=== PATIENT | female | born 1940 | race Caucasian/White ===

== ENCOUNTER → 2023-07-01 08:51 | Outpatient (REF) | payer MEDICARE, SELFPAY ==
[2023-07-01 10:55] LABS: ALT (SGPT) 20 U/L (0-35); AST (SGOT) 25 U/L (14-36); Alkaline Phosphatase 53 U/L (38-126); Blood Urea Nitrogen 15 mg/dl (7-17); Calcium 9.9 mg/dl (8.4-10.2); Carbon Dioxide 29 mmol/L (22-30); Chloride 101 mmol/L (98-107); Glucose 92 mg/dl (70-99); HDL Cholesterol 48 mg/dl; LDL Cholesterol, Calculated 55 mg/dl; Potassium 4.4 mmol/L (3.5-5.1); Sodium 141 mmol/L (135-145); Total Bilirubin 0.5 mg/dl (0.2-1.3); Total Cholesterol 142 mg/dl (50-199); Total Protein 6.8 g/dl (6.3-8.2); Triglyceride 197 mg/dl (10-149); Very Low Density Lipoprotein 39 mg/dl (0-30); eGFR > 60.00
[2023-07-04 09:14] LABS: Intact PTH 41.1 pg/ml (13.6-85.8)
== END ==
LOC: REG 08:51
PROVIDERS: ATTENDING PHYSICIAN Nurse Practitioner Adult Health
DX: E83.52 Hypercalcemia (principal); E78.2 Mixed hyperlipidemia
CPT/HCPCS: 36415; 80053; 80061; 83970

== ENCOUNTER 2023-09-22 10:54 | Outpatient (RCR) | payer MEDICARE, SELFPAY | END 2023-09-22 23:59 | disposition home or self-care (01) | LOC: RPT 10:54 | PROVIDERS: ATTENDING PHYSICIAN Nurse Practitioner Adult Health; FAMILY PHYSICIAN Internal Medicine | DX: M54.2 Cervicalgia (principal); Z73.6 Limitation of activities due to disability | CPT/HCPCS: 97010; 97110; 97140; 97162 ==

== ENCOUNTER 2023-10-06 10:55 | Outpatient (RCR) | payer MEDICARE, SELFPAY | END 2023-10-06 13:55 | disposition home or self-care (01) | LOC: RPT 10:55 | PROVIDERS: ATTENDING PHYSICIAN Nurse Practitioner Adult Health; FAMILY PHYSICIAN Internal Medicine | DX: M54.2 Cervicalgia (principal); Z73.6 Limitation of activities due to disability | CPT/HCPCS: 97010; 97110; 97140 ==

== ENCOUNTER → 2023-11-23 15:28 | Outpatient (REF) | payer MEDICARE, SELFPAY ==
[2023-11-23 15:55] LABS: Erythrocyte Sed Rate 12 mm/hour (0-20)
[2023-11-23 16:11] LABS: ALT (SGPT) 23 U/L (0-35); AST (SGOT) 29 U/L (14-36); Albumin 4.8 g/dl (3.5-5.0); Alkaline Phosphatase 62 U/L (38-126); Blood Urea Nitrogen 15 mg/dl (7-17); Calcium 10.6 mg/dl (8.4-10.2); Carbon Dioxide 27 mmol/L (22-30); Chloride 103 mmol/L (98-107); Glucose 93 mg/dl (70-99); HDL Cholesterol 46 mg/dl; LDL Cholesterol, Calculated 50 mg/dl; Sodium 139 mmol/L (135-145); Total Bilirubin 0.4 mg/dl (0.2-1.3); Total Cholesterol 144 mg/dl (50-199); Total Protein 7.6 g/dl (6.3-8.2); Triglyceride 243 mg/dl (10-149); Very Low Density Lipoprotein 48 mg/dl (0-30); eGFR > 60.00
== END ==
LOC: REG 15:28
PROVIDERS: ATTENDING PHYSICIAN Nurse Practitioner Adult Health
DX: M31.6 Other giant cell arteritis (principal); I10 Essential (primary) hypertension; E78.2 Mixed hyperlipidemia
CPT/HCPCS: 36415; 80053; 80061; 85652

== ENCOUNTER → 2024-06-09 08:35 | Outpatient (REF) | payer MEDICARE, SELFPAY ==
[2024-06-09 11:33] LABS: ALT (SGPT) 24 U/L (0-35); AST (SGOT) 28 U/L (14-36); Albumin 4.7 g/dl (3.5-5.0); Alkaline Phosphatase 55 U/L (38-126); Blood Urea Nitrogen 20 mg/dl (7-17); Calcium 10.1 mg/dl (8.4-10.2); Carbon Dioxide 28 mmol/L (22-30); Chloride 103 mmol/L (98-107); Glucose 96 mg/dl (70-99); HDL Cholesterol 45 mg/dl; LDL Cholesterol, Calculated 60 mg/dl; Potassium 4.6 mmol/L (3.5-5.1); Sodium 141 mmol/L (135-145); Total Bilirubin 0.5 mg/dl (0.2-1.3); Total Cholesterol 141 mg/dl (50-199); Total Protein 7.5 g/dl (6.3-8.2); Triglyceride 180 mg/dl (10-149); Very Low Density Lipoprotein 36 mg/dl (0-30); eGFR > 60.00
== END ==
LOC: REG 08:35
PROVIDERS: ATTENDING PHYSICIAN Nurse Practitioner Adult Health
DX: I10 Essential (primary) hypertension (principal); E78.2 Mixed hyperlipidemia
CPT/HCPCS: 36415; 80053; 80061

== ENCOUNTER → 2024-06-16 13:28 | Outpatient (REF) | payer MEDICARE, SELFPAY | LOC: RAD 13:28 | PROVIDERS: ATTENDING PHYSICIAN Nurse Practitioner Adult Health; FAMILY PHYSICIAN Internal Medicine | DX: M16.11 Unilateral primary osteoarthritis, right hip (principal) | CPT/HCPCS: 73502 ==

== ENCOUNTER → 2024-08-23 08:11 | Outpatient (REF) | payer MEDICARE, SELFPAY | LOC: HWRCS 08:11 | PROVIDERS: ATTENDING PHYSICIAN Internal Medicine Cardiovascular Disease; FAMILY PHYSICIAN Nurse Practitioner Adult Health | DX: Z01.810 Encounter for preprocedural cardiovascular examination (principal); I10 Essential (primary) hypertension | CPT/HCPCS: 78452; 93017; A9500; J2785 ==

== ENCOUNTER 2024-10-12 06:31 | Inpatient (IN) | payer MEDICARE, SELFPAY ==
[2024-08-09 11:20] LABS: Hematocrit 36.3 % (37.0-47.0); Hemoglobin 12.2 g/dL (12.0-16.0); Mean Corp Hgb Conc. 33.6 g/dL (33.0-37.0); Mean Corpuscular Hgb 30.2 pg (27.0-31.0); Mean Corpuscular Volume 89.9 fL (81.0-99.0); Mean Platelet Volume 9.7 fL (7.4-10.4); Platelet Count 253 10^3/uL (130-400); Red Blood Cell Count 4.04 10^6/uL (4.20-5.40); Red Cell Dist. Width 13.2 % (11.5-14.5); White Blood Cell Count 6.3 10^3/uL (4.8-10.8)
[2024-08-09 12:16] LABS: Glycohemoglobin (HgbA1c) 5.5 % (4.0-5.6)
[2024-08-09 12:22] LABS: ALT (SGPT) 24 U/L (0-35); AST (SGOT) 29 U/L (14-36); Albumin 4.9 g/dl (3.5-5.0); Alkaline Phosphatase 65 U/L (38-126); Blood Urea Nitrogen 14 mg/dl (7-17); Calcium 10.3 mg/dl (8.4-10.2); Carbon Dioxide 24 mmol/L (22-30); Chloride 101 mmol/L (98-107); Glucose 109 mg/dl (70-99); Potassium 4.4 mmol/L (3.5-5.1); Sodium 138 mmol/L (135-145); Total Bilirubin 0.5 mg/dl (0.2-1.3); Total Protein 7.5 g/dl (6.3-8.2); eGFR > 60.00
[2024-08-09 14:15] VITALS: BMI 24.9
[2024-08-09 16:17] VITALS: BMI 24.9
--- NOTE | 2024-09-22 15:02 | CM ---
CM spoke with patient's daughter. CM confirmed that patient lives independently with her son. Daughter is available for assistance and discharge planning. Patient does not have a history of VN< SNF. CM confirmed that patient has a list of her DME
and has purchased all of it despite the hip kit. CM advised daughter hip kit would be available on [employer].
Patient is active with her PCP> Patient uses [facility] for medication services.
Patients daughter stated that they are considering moving the bed down stairs. CM advised that patient will be evaluated on stairs prior to being discharged from the hospital.
CM discussed outpatient PT. Daughter will made outpatient PT appoint at [facility].
CM encouraged hydration and bowel regimen pre-operatively.
PLAN: home with family, outpatient PT.
[2024-09-27 12:49] LABS: Hematocrit 37.3 % (37.0-47.0); Hemoglobin 12.6 g/dL (12.0-16.0); Mean Corp Hgb Conc. 33.8 g/dL (33.0-37.0); Mean Corpuscular Hgb 30.3 pg (27.0-31.0); Mean Corpuscular Volume 89.7 fL (81.0-99.0); Mean Platelet Volume 10.1 fL (7.4-10.4); Platelet Count 257 10^3/uL (130-400); Red Blood Cell Count 4.16 10^6/uL (4.20-5.40); Red Cell Dist. Width 13.2 % (11.5-14.5); White Blood Cell Count 5.2 10^3/uL (4.8-10.8)
[2024-09-27 13:06] VITALS: BMI 26.0
[2024-09-27 13:17] LABS: ALT (SGPT) 24 U/L (0-35); AST (SGOT) 28 U/L (14-36); Albumin 4.7 g/dl (3.5-5.0); Alkaline Phosphatase 56 U/L (38-126); Blood Urea Nitrogen 16 mg/dl (7-17); Calcium 9.8 mg/dl (8.4-10.2); Carbon Dioxide 27 mmol/L (22-30); Chloride 104 mmol/L (98-107); Estimated Creatinine Clearance 51 ml/min; Glucose 89 mg/dl (70-99); Potassium 4.6 mmol/L (3.5-5.1); Sodium 142 mmol/L (135-145); Total Bilirubin 0.5 mg/dl (0.2-1.3); Total Protein 7.4 g/dl (6.3-8.2); eGFR > 60.00
--- NOTE | 2024-09-27 13:39 | HPS.HSE ---
Family Physician
-
Family Physician: Carlos Bravo
Chief Complaint
-
Advanced primary osteoarthritis of the right hip.
History of Present Illness
84yo female presenting today for advanced primary osteoarthritis of the right
hip. The patient reports significant right hip pain and instability
secondary to this diagnosis. She notes that her current right hip pain
is greatly interfering with her activities of daily living and is overall
impacting her quality of life. She has tried and failed multiple
conservative treatment measures in the past for her right hip pain.
These conservative treatment measures include activity modification,
self-directed therapeutic exercises, physical therapy, injection therapy,
medical management with Tylenol and NSAIDs, and the application of
ice and/or heat. Recent x-ray findings of the right hip demonstrated
100% [id number] osteoarthritis. She was determined to be in
need of a right total hip arthroplasty. She denies any current
complaints today such as chest pain, shortness of breath, palpitations,
nausea, vomiting, diarrhea, lightheadedness, dizziness, cough, sore
throat, or fever.
Medical History
Past Medical History
Past Medical History: Reports Other (see below)
Additional Past Medical History:
1. Osteoarthritis.
2. Hypertension.
3. Hyperlipidemia.
4. Abnormal EKG; nuclear stress test 08/23/2024 stable.
5. GERD.
6. Hiatal hernia.
7. Chronic constipation.
8. Mild cognitive deficits regarding short term memory.
9. Remote migraines.
10. Peripheral neuropathy.
11. Balance difficulties.
12. Multilevel degenerative disc disease.
13. Overactive bladder with urinary incontinence.
14. Allergic rhinitis.
15. Anxiety.
16. Osteopenia.
17. Insomnia.
18. Hearing impairment bilaterally.
Past Surgical History: Reports Other (cataract)
Social History
Tobacco: Non-smoker
Alcohol: Occasional
Family History
Family History: Not pertinent
Allergies / Home Medications
Allergies reflects when Allergies were last updated in [employer].
Home Medications with original date entered in [employer]
Allergy/Medication List:
MEDICATIONS:
1. Acetaminophen 1000 mg p.o. every six hours as needed.
2. Amlodipine 10 mg p.o. daily.
3. Calcium and vitamin D one tablet p.o. daily.
4. Co Q10 50 mg p.o. every evening.
5. Tylenol PM two tablets p.o. at bedtime as needed.
6. Lisinopril 40 mg p.o. daily.
7. Meloxicam 7.5 mg p.o. daily.
8. Multivitamin one tablet p.o. daily.
9. Probiotic one capsule p.o. twice a day.
10. Senna Plus 1-2 tab-capsules p.o. at bedtime as needed.
11. Sertraline 25 mg p.o. daily.
12. Simvastatin 20 mg p.o. every evening.
ALLERGIES: Codeine. Penicillin. Cephalosporin.
Review of Systems
-
A 12 point ROS was completed and negative except as noted: Yes
Physical Exam
Physical Exam
General: Well Developed and Well Nourished
HEENT: NormoCephalic and Anicteric
Respiratory: Clear and Non Labored Respirations
Cardiac: S1/S2 and Regular Rhythm
GI: Soft, Non Tender, Normal Bowel Sounds and No Hepatosplenomegaly
Musculoskeletal: Other (R hip: 10 degree internal, 5 degree external rotation with pain upon active and passive ROM)
Neuro: AO x 3 and Cranial Nerves Intact
Laboratory Results
-
09/27/24 11:01
09/27/24 11:01
Laboratory Results
Total Bilirubin 0.5 mg/dl (0.2-1.3) 09/27/24 11:01
AST 28 U/L (14-36) 09/27/24 11:01
ALT 24 U/L (0-35) 09/27/24 11:01
Alkaline Phosphatase 56 U/L (38-126) 09/27/24 11:01
Impression/Plan
-
CLEARANCES:
1. Primary medical, VERO Lyons, cleared.
Primary medical phone number: [phone].
2. Cardiology, Dr. Valdemar Dejesus, cleared pending stress test.
Stress test without significant ischemia.
3. Dental, Dr. Rashard Alvarenga, cleared.
IMPRESSION/PLAN:
1. Advanced primary osteoarthritis of the right hip in need of a
right total hip arthroplasty by Dr. Mumtaz Mina on
08/24/2024. The benefits and risks of the procedure have
been explained to the patient. The patient understands these
risks and wishes to proceed.
2. Deep vein thrombosis prophylaxis: Aspirin with bilateral venous
compression devices.
3. Chronic constipation: We will add nightly Milk of Magnesia to
our standard bowel regimen of Colace and Senokot post-
surgery.
4. Balance difficulties: The patient will be placed on fall
precautions post-operatively.
5. Mild cognitive deficits regarding short term memory: We will
use Tramadol as needed for moderate to severe post-
operative pain.
[2024-09-27 13:41] LABS: Glycohemoglobin (HgbA1c) 5.7 % (4.0-5.6)
[2024-09-27 16:36] VITALS: BMI 26.0
[2024-10-12] VITALS (16 sets, daily range): BP systolic 107–153; BP diastolic 44–75; PULSE 88; O2SAT 96; BMI 26.0
[2024-10-12] MEDS: TYLENOL 650 MG PO ×4 (07:17→20:02)
[2024-10-12] MEDS: CELEBREX 200 MG PO (07:17)
--- NOTE | 2024-10-12 07:20 | W.PN.ORTHO ---
Today's Communication / Plan
-
d/c when stable
Assessment
.
Dressing:
Clean, dry and intact.
Assessment:
Chronic constipation: We will add nightly Milk of Magnesia to
our standard bowel regimen of Colace and Senokot post-
surgery.
Balance difficulties: The patient will be placed on fall
precautions post-operatively.
Mild cognitive deficits regarding short term memory: We will
use Tramadol as needed for moderate to severe post-
operative pain.
Plan
.
Surgery / Date: R ANDREW 10/12/24
DVT Prophylaxis: Aspirin
Activity:
Out of bed.
PT/OT
Vital Signs and Labs
.
Vital Signs and Labs:
Lab Results
09/27/24 11:01
09/27/24 11:01
[2024-10-12] MEDS: NORMOSOL-R/PLASMALYTE-A 1000 IV ×3 (07:29→12:04)
--- NOTE | 2024-10-12 07:40 | W.DS.TRANS ---
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
-
Discharge Instructions:
Sleep Apnea Risk Low
Discharge Diagnosis/Procedures R ANDREW 10/12/24
Diet As tolerated
Activity With Walker
Additional Activity Adequate hydration, minimize Oxy and wear TEDs
stockings to prevent low blood pressure/
dizziness
Driving Restrictions No driving
Bathing Restrictions OK to Shower
Other Services PT
Instructions:
Stand-Alone Forms: Total Hip/Knee Replacement D/C
Changes to Home Medications: Yes
Discharge Medications:
DC Medications w/original date entered in [facility]
Probiotic 1 cap PO BID 08/03/24
calcium 600 mg (as carbonate)-vitamin D3 5 mcg (200 unit) tablet 1 tab PO DAILY 08/03/24
coQ10 (ubiquinol) 50 mg PO QPM 08/03/24
diphenhydramine 25 mg-acetaminophen 500 mg tablet (Tylenol PM Extra Strength) 2 tab PO HS PRN pain insomnia 08/03/24
hlwxkrav-ket-wsojd ac 400 mcg-calcium carb 500 mg-vit K1 20 mcg tablet (Women's 50 Plus Multivitamin) 1 tab PO DAILY 08/03/24
simvastatin 20 mg tablet 20 mg PO QPM 08/03/24
loratadine 10 mg tablet 10 mg PO DAILY PRN seasonal allergies 09/26/24
sertraline 50 mg tablet 50 mg PO DAILY 09/26/24
dexamethasone 4 mg tablet 4 mg PO BID inflammation #6 tabs 09/27/24
famotidine 20 mg tablet 20 mg PO HS GI prophylaxis #30 tabs 09/27/24
gabapentin 300 mg capsule 300 mg PO HS sleep/pain #10 caps 09/27/24
meloxicam 15 mg tablet 15 mg PO DAILY anti-inflammatory #14 tabs 09/27/24
mupirocin 2 % topical ointment 1 applic topical BID infection prevention #1 tube 09/27/24
ondansetron 4 mg disintegrating tablet 4 mg PO Q6H PRN n/v #20 tabs 09/27/24
tramadol 50 mg tablet 50 mg PO Q6H PRN 1 tab moderate pain, 2 if severe #30 tabs 09/27/24
acetaminophen 500 mg tablet 1,000 mg (2 x 500 mg) PO TID #0 tabs 10/12/24
amlodipine 10 mg tablet 10 mg PO DAILY #0 tabs 10/12/24
aspirin 325 mg tablet 325 mg PO DAILY blood clot prevention #1 tab 10/12/24
docusate sodium 100 mg capsule (Colace) 100 mg PO BID stool softner #1 cap 10/12/24
lisinopril 40 mg tablet 40 mg PO DAILY #0 tabs 10/12/24
magnesium hydroxide 400 mg/5 mL oral suspension (Milk of Magnesia) 30 ml PO HS constipation #1 mL 10/12/24
sennosides 8.6 mg-docusate sodium 50 mg capsule (Senna Plus) 2 tab-cap (2 x 8.6-50 mg) PO BID #2 caps 10/12/24
Home Medication Changes
dexamethasone 4 mg tablet 4 mg PO BID inflammation #6 tabs 09/27/24
famotidine 20 mg tablet 20 mg PO HS GI prophylaxis #30 tabs 09/27/24
gabapentin 300 mg capsule 300 mg PO HS sleep/pain #10 caps 09/27/24
meloxicam 15 mg tablet 15 mg PO DAILY anti-inflammatory #14 tabs 09/27/24
mupirocin 2 % topical ointment 1 applic topical BID infection prevention #1 tube 09/27/24
ondansetron 4 mg disintegrating tablet 4 mg PO Q6H PRN n/v #20 tabs 09/27/24
tramadol 50 mg tablet 50 mg PO Q6H PRN 1 tab moderate pain, 2 if severe #30 tabs 09/27/24
acetaminophen 500 mg tablet 1,000 mg (2 x 500 mg) PO TID #0 tabs 10/12/24
amlodipine 10 mg tablet 10 mg PO DAILY #0 tabs 10/12/24
aspirin 325 mg tablet 325 mg PO DAILY blood clot prevention #1 tab 10/12/24
docusate sodium 100 mg capsule (Colace) 100 mg PO BID stool softner #1 cap 10/12/24
lisinopril 40 mg tablet 40 mg PO DAILY #0 tabs 10/12/24
magnesium hydroxide 400 mg/5 mL oral suspension (Milk of Magnesia) 30 ml PO HS constipation #1 mL 10/12/24
sennosides 8.6 mg-docusate sodium 50 mg capsule (Senna Plus) 2 tab-cap (2 x 8.6-50 mg) PO BID #2 caps 10/12/24
Pending Results: No
[2024-10-12] MEDS: DILAUDID 0.25 MG IV (09:24)
[2024-10-12] MEDS: ULTRAM 50 MG PO ×2 (09:31→15:58)
[2024-10-12] MEDS: DILAUDID 0.5 MG IV (09:43)
--- NOTE | 2024-10-12 10:42 | PTCARENOTE ---
Patient admitted from PACU post right total hip replacement.The patient rates her pain at a 3-4 out of 10.Vital signs are stable.The right hip dressing is intact without drainage.Neurovascular assessment is within normal limits and ongoing.The
patient is in her bed with the call soto in reach.
[2024-10-12] MEDS: ZOLOFT 50 MG PO (11:55)
[2024-10-12] MEDS: ANCEF 5 IV (15:58)
[2024-10-12] MEDS: LIPITOR 10 MG PO (17:34)
[2024-10-12] MEDS: ASPIRIN 325 MG PO (17:34)
[2024-10-12] MEDS: SENOKOT 17.2 MG PO (20:01)
[2024-10-12] MEDS: COLACE 100 MG PO (20:01)
[2024-10-12] MEDS: DECADRON 4 MG IV (20:02)
[2024-10-12] MEDS: TORADOL 15 MG IV (20:02)
[2024-10-12] MEDS: PEPCID 20 MG PO (21:48)
[2024-10-12] MEDS: BACTROBAN 2% OINTMENT 1 APPLIC NASAL (21:48)
[2024-10-12] MEDS: NEURONTIN 300 MG PO (21:48)
[2024-10-12] MEDS: BENADRYL 50 MG PO (21:48)
[2024-10-12] MEDS: MILK OF MAGNESIA 30 ML PO (21:49)
[2024-10-13] MEDS: TYLENOL 1000 MG PO (00:18)
[2024-10-13] MEDS: ANCEF 5 IV (00:19)
[2024-10-13] MEDS: TYLENOL PO ×2 (00:19→05:31)
[2024-10-13 03:00] VITALS: BP 135/70
[2024-10-13 07:08] VITALS: BP 141/60
[2024-10-13] MEDS: SENOKOT 17.2 MG PO (08:19)
[2024-10-13] MEDS: COLACE 100 MG PO (08:20)
[2024-10-13] MEDS: TYLENOL 650 MG PO (08:20)
[2024-10-13] MEDS: ASPIRIN 325 MG PO (08:20)
[2024-10-13] MEDS: TORADOL 15 MG IV (08:21)
[2024-10-13] MEDS: BACTROBAN 2% OINTMENT 1 APPLIC NASAL (08:21)
[2024-10-13] MEDS: DECADRON 4 MG IV (08:21)
[2024-10-13] MEDS: MOBIC 15 MG PO (08:24)
[2024-10-13] MEDS: ZOLOFT 50 MG PO (08:24)
[2024-10-13] MEDS: FLUSH (NSS) 2 FLUSH IV (08:26)
--- NOTE | 2024-10-13 09:04 | CM ---
Cm reviewed medical records. CM met with patient and family in room. CM confirmed outpatient physical therapy appointment with Rashaad Herrera. Patient's first appointment is 10/14 as per daughter. CM will remain available as needed.
PLAN: Home with outpatient PT.
--- NOTE | 2024-10-13 10:31 | W.PN.ORTHO ---
Today's Communication / Plan
-
d/c
Assessment
.
Distal Motor Intact: Yes
Dressing:
Clean, dry and intact.
Assessment:
Chronic constipation: We will add nightly Milk of Magnesia to
our standard bowel regimen of Colace and Senokot post-
surgery.
Balance difficulties: The patient was be placed on fall
precautions [id number] with family re d/c
Mild cognitive deficits regarding short term memory:
-Tramadol as needed for moderate to severe post-
operative pain
*Prevention of post-op complications re orthostasis and constipation/ileus --discussed and outlined in d/c instructions: TEDs stockings, minimizing opioid, adequate hydration and adhering to bowel regimen*
Plan
.
Surgery / Date: R ANDREW 10/12/24
DVT Prophylaxis: Aspirin
Activity:
Out of bed.
PT/OT
Discharge Plan: Home w/ Outpatient PT
Subjective
.
.:
Patient resting comfortably.
Vital Signs and Labs
.
Vital Signs and Labs:
Lab Results
09/27/24 11:01
09/27/24 11:01
Temp Pulse Resp BP Pulse Ox
97.9 F 72 18 141/60 95
10/13/24 07:08 10/13/24 07:08 10/13/24 07:08 10/13/24 08:22 10/13/24 07:08
Non-invasive Hgb result: 13.0
Physical Exam
-
HEENT: No pallor, cyanosis, or jaundice. Throat clear.
NECK: Supple. No JVD.
RESPIRATORY: Lungs clear to auscultation.
CVS: S1, S2 normal. RRR.� No murmur, rub or gallop.
ABDOMEN: Soft, non-tender. No distension. BS+/normal.
EXTREMITIES: strength equal, no calf pain with palpation
RISK SPECIALIST: AOx3. No focal deficits. 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
[2024-10-13 11:10] VITALS: BP 116/53; PULSE 76; O2SAT 97
[2024-10-13 11:30] VITALS: BP 128/60
== END 2024-10-13 12:13 | disposition home or self-care (01) | DRG 470 ==
LOC: 2 SOUTH 06:31
PROVIDERS: ADMITTING PHYSICIAN Orthopaedic Surgery; FAMILY PHYSICIAN Nurse Practitioner Adult Health; REFERRING PHYSICIAN Internal Medicine Cardiovascular Disease
PROC: 0SR90JA Replacement of Right Hip Joint with Synthetic Substitute, Uncemented, Open Approach (ICD-10-PCS; 2024-10-12)
DX: M16.11 Unilateral primary osteoarthritis, right hip (principal); I10 Essential (primary) hypertension; E78.5 Hyperlipidemia, unspecified; R94.31 Abnormal electrocardiogram [ECG] [EKG]; K21.9 Gastro-esophageal reflux disease without esophagitis; K44.9 Diaphragmatic hernia without obstruction or gangrene; K59.09 Other constipation; R41.89 Other symptoms and signs involving cognitive functions and awareness; G62.9 Polyneuropathy, unspecified; N32.81 Overactive bladder; R32 Unspecified urinary incontinence; J30.9 Allergic rhinitis, unspecified; F41.9 Anxiety disorder, unspecified; M85.80 Other specified disorders of bone density and structure, unspecified site; G47.00 Insomnia, unspecified; H91.93 Unspecified hearing loss, bilateral; Z98.41 Cataract extraction status, right eye; Z98.42 Cataract extraction status, left eye; Z88.0 Allergy status to penicillin; Z88.1 Allergy status to other antibiotic agents; Z88.5 Allergy status to narcotic agent
CPT/HCPCS: 36415; 73502; 80053; 83036; 85027; 87070; 93005; 97110; 97116; 97162; 97167; 97530; 97535; C1713; C1776